=== PATIENT | male | born 1950 | race Asian ===

== ENCOUNTER 2019-04-04 08:28 | Day surgery (SDC) | payer OTHER ==
[~2019-04-04] VITALS: Ht 154.9 cm; Wt 45.9 kg
[2019-04-04] MEDS ORDERED: ACETAMINOPHEN 325 MG TABLET PO PRN (08:45)
[2019-04-04] MEDS ORDERED: SODIUM CHLORIDE 0.9% 500 ML IV ONE (08:45)
[2019-04-04] MEDS: KETOROLAC TROMETHAMINE 0.5% 5 ML OPHTHALMIC SOLUTION OS SCH ×3 (08:46→08:57)
[2019-04-04] MEDS: TETRACAINE HCL/PF 0.5% 4 ML OPHTHALMIC SOLUTION OS SCH ×3 (08:46→08:57)
[2019-04-04] MEDS: MOXIFLOXACIN HCL 0.5% 3 ML OPHTHALMIC SOLUTION OS SCH ×3 (08:46→08:57)
[2019-04-04] MEDS: PHENYLEPHRINE HCL 2.5% 2 ML OPHTHALMIC SOLUTION OS SCH ×3 (08:46→08:57)
[2019-04-04] MEDS: CYCLOPENTOLATE HCL 2% 2 ML OPHTHALMIC SOLUTION OS SCH ×3 (08:46→08:57)
[2019-04-04] MEDS ORDERED: PYRI50TA13 PO (09:39)
[2019-04-04] MEDS ORDERED: FINA5TAB41 PO (09:39)
[2019-04-04] MEDS ORDERED: GLUC100019 PO (09:39)
[2019-04-04] MEDS ORDERED: OXYB5XL PO (09:39)
[2019-04-04] MEDS ORDERED: OMEG-135 PO (09:39)
[2019-04-04] MEDS ORDERED: TAMS-1 PO (09:39)
[2019-04-04] MEDS ORDERED: PHENYLEPHRINE HCL 2.5% 2 ML OPHTHALMIC SOLUTION ONE (10:33)
[2019-04-04] MEDS ORDERED: CYCLOPENTOLATE HCL 2% 2 ML OPHTHALMIC SOLUTION ONE (10:33)
[2019-04-04] MEDS ORDERED: MOXIFLOXACIN HCL 0.5% 3 ML OPHTHALMIC SOLUTION ONE (10:33)
[2019-04-04] MEDS ORDERED: KETOROLAC TROMETHAMINE 0.5% 5 ML OPHTHALMIC SOLUTION ONE (10:33)
[2019-04-04] MEDS ORDERED: TETRACAINE HCL/PF 0.5% 4 ML OPHTHALMIC SOLUTION ONE (10:34)
[2019-04-04] MEDS ORDERED: FentaNYL CITRATE-PF 100 MCG/2 ML VIAL IVP ONE (12:00)
[2019-04-04] MEDS ORDERED: MIDAZOLAM HCL 2 MG/2 ML VIAL IVP ONE (12:00)
== END 2019-04-04 10:30 | disposition home or self-care (01) ==
LOC: SURGERY 08:28
PROVIDERS: ATTEND Ophthalmology
DX: H26.8 Other specified cataract (principal); Z72.89 Other problems related to lifestyle; Z89.612 Acquired absence of left leg above knee; Z89.619 Acquired absence of unspecified leg above knee
CPT/HCPCS: 66984; 93005; C1780; J2250; J3010

== ENCOUNTER → 2019-05-09 | Day surgery (SDC) | payer OTHER ==
[~2019-05-09] VITALS: Ht 157.5 cm; Wt 46.4 kg
[~2019-05-09] MED LIST: ALPRAZolam 0.5 MG TABLET PO ONE; CYCLOPENTOLATE HCL 1% 2 ML OPHTHALMIC SOLUTION ONE; DICLOFENAC SODIUM 0.1% 2.5 ML OPHTHALMIC SOLUTION ONE; FINA5TAB41 PO; GLUC100019 PO; KETOROLAC TROMETHAMINE 0.5% 5 ML OPHTHALMIC SOLUTION ONE; MOXIFLOXACIN HCL 0.5% 3 ML OPHTHALMIC SOLUTION ONE; OMEG-135 PO; OXYB5XL PO; PHENYLEPHRINE HCL 2.5% 2 ML OPHTHALMIC SOLUTION ONE; PYRI50TA13 PO; RINGERS SOLUTION,LACTATED 500 ML IV ONE; TAMS-1 PO; TETRACAINE HCL/PF 0.5% 4 ML OPHTHALMIC SOLUTION OD ONE; TETRACAINE HCL/PF 0.5% 4 ML OPHTHALMIC SOLUTION ONE; TROPICAMIDE 1% 2 ML OPHTHALMIC SOLUTION ONE
[2019-05-09] MEDS: CYCLOPENTOLATE HCL 1% 2 ML OPHTHALMIC SOLUTION OD SCH ×3 (07:16→07:29)
[2019-05-09] MEDS: MOXIFLOXACIN HCL 0.5% 3 ML OPHTHALMIC SOLUTION OD SCH ×3 (07:16→07:30)
[2019-05-09] MEDS: KETOROLAC TROMETHAMINE 0.5% 5 ML OPHTHALMIC SOLUTION OD SCH ×3 (07:17→07:30)
[2019-05-09] MEDS: PHENYLEPHRINE HCL 2.5% 2 ML OPHTHALMIC SOLUTION OD SCH ×3 (07:17→07:29)
[2019-05-09] MEDS: TROPICAMIDE 1% 2 ML OPHTHALMIC SOLUTION OD SCH ×3 (07:17→07:29)
== END | disposition home or self-care (01) ==
LOC: SURGERY 06:29
PROVIDERS: ATTEND Ophthalmology
DX: E11.36 Type 2 diabetes mellitus with diabetic cataract (principal); H26.8 Other specified cataract; I10 Essential (primary) hypertension; Z79.899 Other long term (current) drug therapy; Z72.89 Other problems related to lifestyle; Z98.42 Cataract extraction status, left eye; Z96.1 Presence of intraocular lens; Z98.890 Other specified postprocedural states
CPT/HCPCS: 66984; 93005; C1780